=== PATIENT | male | born 1950 | race Caucasian/White ===

== ENCOUNTER → 2017-06-20 | Outpatient (CLI) | payer OTHER ==
[~2017-06-20] MED LIST: ASPI-319 PO; ATOR-24 PO; DOXY50CA26 PO; FNCG50 TOP; LVMIPUC SQ; METO100T14 PO; NVLRPUC SQ
[2017-06-20 12:29] LABS: HEMOGLOBIN A1C 8.4 % (4.5-5.6)
[2017-06-20 12:31] LABS: BASO % 0.6 %; BASO ABS # 0.03 K/uL (0-0.2); EOS % 3.2 %; EOS ABS # 0.17 K/uL (0-0.5); HEMATOCRIT 40.6 % (42-52); HEMOGLOBIN 13.9 g/dL (14.0-18.0); IG# 0.01 K/uL (0.00-0.02); LYMPH % 32.3 %; MEAN CELL VOLUME 92.7 fL (80-100); MEAN CORPUSCULAR HEMOGLOBIN 31.7 pg (25-34); MEAN CORPUSCULAR HGB CONC 34.2 g/dl (32-36); MEAN PLATELET VOLUME 10.3 fL (7.4-10.4); MONO % 10.6 %; MONO ABS # 0.56 K/uL (0.11-0.59); NEUT % 53.1 %; NEUT ABS # 2.79 K/uL (1.4-6.5); PLATELET COUNT 205 K/uL (130-400); RED CELL DISTRIBUTION WIDTH CV 13.1 % (11.5-14.5); RED CELL DISTRIBUTION WIDTH SD 44.9 fL (36.4-46.3); WHITE BLOOD COUNT 5.26 K/uL (4.8-10.8)
[2017-06-20 13:07] LABS: ALT/SGPT 49 U/L (12-78); AST/SGOT 28 U/L (15-37); BLOOD UREA NITROGEN 28 mg/dl (7-18); CALCIUM 8.6 mg/dl (8.5-10.1); CARBON DIOXIDE 29 mmol/L (21-32); CHOLESTEROL 162 mg/dl (0-200); CREATININE 1.43 mg/dl (0.60-1.40); GLUCOSE 238 mg/dl (70-99); SODIUM 140 mmol/L (136-145)
[2017-06-20 13:12] LABS: ALKALINE PHOSPHATASE 90 U/L (45-117); LDL CHOLESTEROL CALCULATED 63 mg/dl; TOTAL PROTEIN 7.3 gm/dl (6.4-8.2)
== END | disposition home or self-care (01) ==
LOC: C.LABBFT 08:56
PROVIDERS: ATTEND Physician Assistant Medical
DX: Z12.5 Encounter for screening for malignant neoplasm of prostate (principal); I10 Essential (primary) hypertension

== ENCOUNTER 2024-07-26 08:56 | Observation (INO) ==
--- NOTE | 2024-07-26 09:26 | History & Physical Bridge Note ---
Date of Service July 26, 2024 History & Physical Bridge Note I have examined the patient, reviewed the History & Physical and in the interval since the performance of the History & Physical I have noted the following changes of clinical significance: no changes noted
--- NOTE | 2024-07-26 09:27 | Pre Anesthesia Assessment ---
Date of Service July 26, 2024 Pre Sedation Assessment Cardiovascular + regular rate and + regular rhythm Respiratory + respiratory effort normal Pre-Sedation Airway Assessment Smoking Status: Never smoker Hx Sleep Apnea: No Hx Difficult Intubation: No Short, Thick Neck: No Thyromental Distance: > or= 3.5 Finger Breadths Oral Cavity: + WNL Mallampati Class: III ASA: ASA3 Procedure Planning Contraindications for Sedation: none Current Medications Reviewed: Yes Notes The planned sedation has been discussed with the patient. Informed Consent was o btained. I have identified the patient, determined the appropriateness of sedation and have assessed the patient immediately prior to the procedure. All medicine(s) and interventions are by my order.
[2024-07-26] MEDS: LIDOCAINE 1% LOCAL 20 ML VIAL ONE (11:08)
[2024-07-26] MEDS: VANCOMYCIN HCL 1000MG/20ML VIAL ONE (11:08)
[2024-07-26] MEDS: BUPIVACAINE 0.25% PF 30 ML VIAL ONE (11:08)
[2024-07-26] MEDS: ceFAZolin 330 MG/ML 1 GM VIAL ONE (11:09)
[2024-07-26] MEDS: WATER, STERILE FOR INJ 10 ML VIAL ONE (11:09)
[2024-07-26] MEDS: fentaNYL citrate PF 100 MCG/2 ML VIAL ONE (11:09)
[2024-07-26] MEDS: MIDAZOLAM HCL 5 MG/ML 1 ML VIAL ONE (11:10)
--- NOTE | 2024-07-26 11:20 | Post Anesthesia Assessment ---
Date of Service July 26, 2024 Post Sedation Assessment Vital Signs Pulse Resp BP Pulse Ox O2 Del Method 07/26/24 09:15 62 14 145/72 H 94 Room Air Recovery Score Activity: Moves 4 extremities Respiration: Deep Breath/Cough Circulation: +/-20% PreAnes Value Consciousness: Fully Awake Oxygen Saturation: O2 needed for >90% Discharge Sedation Level of Care: Fast Track Phase II Post Sedation Plan On clinical assessment, the patient appears to have tolerated the sedation without complications. Patient is recovering as anticipated. Patient will continue to be monitored by nursing and may be discharged when sedation discharge criteria are met per below protocol. Upon Completions of procedure up to 15 minutes continue every 5 minute vital signs and the P.A.R. score; then discharge to a Phase I or Fast Track to Phase II per the following guidelines: * Discharge Patient to appropriate Phase II area if PAR is 8 or greater or return to pre- procedure baseline. The post - procedure orders will be as directed. * If PAR score is less than 8 or not return to pre-procedure baseline then patient will follow Phase I monitoring till PAR is reached for Phase II. The Phase I may be done in procedure room or may call to secure a Phase I area. * If naloxone or flumazenil are used for reversal, hold in Phase I for continued monitoring from when last reversal dose was given for a minimum of 60 minutes or longer pending the nurse and/or physician discretion of patient condition before discharge to Phase II. Please call the Sedation Physician to re-evaluate and complete post-note for discharge to Phase II area. Do NOT discharge from procedure sedation or Phase 1 until post- sedation evaluation note is complete by procedure /sedation MD Sedation Discharge Instructions to be given to the patient at discharge to home.
--- NOTE | 2024-07-26 11:20 | Electrophysiology Report ---
Date of Service July 26, 2024 Electrophysiology Procedure Electrophysiology Procedure Report Procedure performed: Implantation of a biventricular ICD Staff associate media planner: Austyn Tovar MD Indication: The patient is a 73-year-old gentleman with a history of an ischemic cardiomyopathy. He has an ejection fraction less than 30%. He is on guideline directed medical therapy. He has not had a myocardial infarction in the past 40 days nor revascularization in the past 90 days. He has [place] Heart Association class II symptoms. He has an anticipated longevity greater than 1 year. He is also known to have left bundle branch block on his EKG with a QRS of 150 ms. Shared decision-making was employed prior to scheduling the implant. Based on this information is felt to be a good candidate for a biventricular ICD as primary prevention and sudden cardiac . Procedure in detail The patient was informed the risk benefits and alternatives to the intended procedure. He understood and wished to proceed. He was taken to the electrophysiology suite in a fasting state. Conscious sedation was administered per protocol the patient was monitored electrocardiography throughout today's procedure. A preoperative antibiotic was administered. The left upper pectoral area was prepped and draped in usual sterile fashion. This area was anesthetized using subcutaneous ministration of lidocaine and Marcaine solution. Incision was made at the site and carried down to the prepectoralis fascia using sharp dissection. Dissection and hemostasis was also achieved using electrocautery. A device pocket was fashioned and the tissues above the pectoralis muscle. The left axillary vein was then accessed 3 times under modified Seldinger technique. Sheath placed over guidewires at this site initially used to facilitate passage of the right ventricular and right atrial leads under fluoroscopic guidance. Adequate sensing and threshold parameters were obtained prior to active-fixation of the leads and the endocardial surface. The remaining sheath was used to facilitate passage of a guiding catheter for engagement of the coronary sinus. Coronary sinus venography was then performed in order to identify a suitable target vessel for the lead. Once identified standard guidewire and sheath techniques were employed in order to deliver the lead to the target vessel. Adequate pacing thresholds in the absence of diaphragmatic stimulation were confirmed prior to removal of the guiding catheters and sheaths. The proximal portion of the leads were then sutured prepectoralis fascia was nonabsorbable suture. The device pocket was then irrigated with an antibiotic solution. The device was then placed inside an antibiotic impregnated envelope. The leads were attached to the device and device was then placed in the pocket. The pocket was subsequently closed with 3 layers of absorbable suture. Steri-Strips and sterile dressing were then applied. The device was tested noninvasively prior to inclusion the procedure. The patient tolerated the procedure well. There were no immediate complications. Equipment used: Pulse generator. Plaster Machine Operator [employer]. Model number DTPA 2QQ serial number [id number] Right atrial lead. Plaster Machine Operator Medtronic. Model #5076 serial number [id number] Right ventricular lead. Plaster Machine Operator Med[employer]onic. Model number 6935M serial number [id number] Coronary sinus lead. Plaster Machine Operator Med[employer]onic. Model number of 4298 serial number [id number] Measured data: Right atrial lead. P waves measure 1 mV. Pacing threshold was 0.75 V at 0.4 ms with a pacing PINS of 475 ohms Right ventricular lead. R waves measure greater than 20 mV. Pacing threshold is 0.75 V at 0.4 ms at base impedance of 798 ohms Coronary sinus lead. Pacing threshold was 1.75 V at 0.4 ms with a pacing PINS of 399 ohms (LV 4 to coil) Impression: Successful implantation of biventricular ICD MN[facility] Electrophysiology codes Pacing Procedure 1: Pacin BiV electrode w/Pacer / ICD implant, add on code ICD Procedure 1: ICD: 18902 Insert single or dual ICD system PG Moderate Sedation Codes Moderate Sedation Codes Procedure 1: Sedation/Anesthesia: 97385 Mod Sedation by the same physician;Init15 Min Child Age 5 & Up Procedure 2: Sedation/Anesthesia: 84675 Mod Sedation by the same physician; Ea [id number] Minutes
[2024-07-26] MEDS ORDERED: ACETAMINOPHEN 325 MG TAB PO PRN (11:21)
[2024-07-26] MEDS ORDERED: oxyCODONE HCL IR 5 MG TAB (IMMEDIATE RELEASE) PO PRN (11:21)
--- NOTE | 2024-07-26 15:45 | Electrocardiogram Report ---
Test Reason : Blood Pressure : */* mmHG Vent. Rate : 61 BPM Atrial Rate : 61 BPM P-R Int : 148 ms QRS Dur : 162 ms QT Int : 526 ms P-R-T Axes : -18 -71 119 degrees QTcB Int : 529 ms AV dual-paced rhythm Biventricular pacemaker detected Abnormal ECG When compared with ECG of 01-Jun-2024 08:54, Electronic ventricular pacemaker has replaced Sinus rhythm Confirmed by Yan Gan ([id number]) on 07/26/2024 3:45:36 PM Referred By: Austyn Tovar Confirmed By: Yan Gan
[2024-07-26] MEDS ORDERED: DEXTROSE 50% 50 ML SYRINGE IV PRN (16:19)
[2024-07-26] MEDS ORDERED: CARBOHYDRATES FOR HYPOGLYCEMIA PO PRN (16:19)
[2024-07-26] MEDS ORDERED: GLUCOSE 10 TAB/TUBE PO PRN (16:19)
[2024-07-26] MEDS ORDERED: GLUCOSE 40% GEL 15 GM TUBE PO PRN (16:19)
[2024-07-26] MEDS ORDERED: GLUCAGON FOR INJ 1 MG VIAL SQ PRN (16:19)
[2024-07-26] MEDS ORDERED: LORazepam 1 MG TAB PO PRN (17:00)
[2024-07-26] MEDS: INSULIN ASPART PER UNIT CHARGE SC SCH (17:05)
[2024-07-26] MEDS: ceFAZolin 1000MG 1,000 MG/7.5 ML SYR IV ONE (17:58)
[2024-07-26] MEDS: ASPIRIN 81 MG ECTAB PO SCH (20:38)
[2024-07-26] MEDS: VALSARTAN/SACUBITRIL 26/24MG TAB PO SCH (20:39)
[2024-07-26] MEDS: ATORVASTATIN 40 MG TAB PO SCH (20:39)
[2024-07-26] MEDS: LANTUS PER UNIT CHARGE SC SCH (20:42)
[2024-07-26] MEDS ORDERED: NON-FORMULARY MEDICATION (Insulin Glargine [Lantus Solostar U-100 Insulin] 100 unit/mL (3 SQ SCH (21:00)
--- NOTE | 2024-07-27 07:18 | XRay Report ---
EXAM: XR chest 2V PA/lateral CLINICAL HISTORY: /P PACEMAKER PLACEMENT EVAL LEAD PLACEMENT EVAL FOR PNEUMO JMF/HLS TECHNIQUE: Radiograph of chest was acquired. COMPARISON: 02/17/2024 16:15:00 FOLEY ARTIST FINDINGS: Sternotomy sutures in situ Cardiac pacemaker in situ with lens in situ in right atrium, bilateral ventricles Mild cardiomegaly The lungs are clear and well-expanded with no pulmonary infiltrate or pleural effusion. Rest of the cardiomediastinal silhouette is within normal limits. No acute osseous abnormality. IMPRESSION: 1. No evidence of pneumothorax 2. Mild cardiomegaly 3. Sternotomy sutures in situ -new finding 4. Cardiac pacemaker in situ with lens in situ in right atrium and bilateral ventricles- new finding Electronically signed by Juan Manuel Jesus 07-27-2024 07:18 AM
[2024-07-27 08:12] VITALS: BP 109/65; PULSE 62; RESP 18; TEMP 98.2; O2SAT 100
[2024-07-27] MEDS: METOPROLOL SUCC 50MG EXT REL TAB PO SCH (08:46)
[2024-07-27] MEDS: SPIRONOLACTONE 12.5 MG TAB PO SCH (08:46)
[2024-07-27] MEDS: PANTOprazole 40 MG TAB PO SCH (08:47)
[2024-07-27] MEDS: FUROSEMIDE 40 MG TAB PO SCH (08:47)
--- NOTE | 2024-07-27 08:51 | Discharge Summary ---
Date of Service July 27, 2024 Principal Diagnosis Ischemic cardiomyopathy Discharge Exam On the day of discharge the patient was ambulatory. Normal respiratory effort Evaluation the device implant site did not reveal any evidence of hematoma, drainage or significant erythema. Mild ecchymosis. Discharge Data Allergies Allergy/AdvReac Type Severity Reaction Status Date / Time lisinopril AdvReac Intermediate Cough Verified 07/29/24 16:37 metformin AdvReac Intermediate Diarrhea Verified 07/29/24 16:37 Procedures Performed Operation Date: 07/26/24 10:00 Actual Procedures p ICD Insertion Single or Dual - Austyn Tovar MD s Venogram Extremity Unilateral - Austyn Tovar MD Ordered Studies 07/26/24 06:45 EP Lab Images for PACS ONCE Hospital Course (1) Ischemic cardiomyopathy: On the day of admission the patient underwent implantation of a biventricular Medtronic ICD. No evident complication. The following morning chest x-ray demonstrated stable lead position without complication. Device interrogation revealed normal function of all leads. Total Time Total Time Spent Total Time Spent (In Minutes): 20 Discharge Plan Discharge Items Patient Disposition: Home - Self-Care Reason For Visit: Ischemic Cardiomyopathy Discharge Diagnosis: Ischemic cardiomyopathy Activity: Per Instructions section Lifting: No more than 10 pounds Lifting Comment: No lifting left arm above shoulder behind neck for 6 weeks Bathing: Keep incision dry Bathing Comment: Keep wound dry and Steri-Strips intact until follow-up in our clinic Exercise/Sports: Gradually increase as tolerated Driving/Machine Use: Resume 1 day after discharge Non-emergency contact: [facility] Call non-emergency contact if: your pain is not controlled, your pain is wo rsening, you have a fever, your wound has increased redness, your wound has increased drainage and your wound pain has increased Follow-up/Referrals: Austyn Rolle MD [Primary Care Provider] - 08/03/24 11:00 am (Hospital follow up scheduled August 03 at 11:00) Diet: Carb Consistent or DM2 and Heart Healthy Addtl Attending Provider Instructions: None Pending Studies at Discharge: No Stand-Alone Forms: My [employer], Smoking Cessation Medications and DC Order Prescriptions: Continued (DME) pen needle, diabetic [BD Ultra-Fine Short Pen Needle] 31 gauge x 5/16" needle See Rx Instructions .ROUTE .MEDSUPPLY Qty: 200 5RF Rx Instructions: injects 6 times daily pantoprazole 40 mg tablet,delayed release (DR/EC) 40 mg PO QAM Qty: 100 3RF metoprolol succinate 200 mg tablet extended release 24 hr 200 mg PO QAM Qty: 100 3RF doxycycline hyclate 50 mg capsule 50 mg PO QAM Qty: 100 3RF Farxiga 10 mg tablet 10 mg PO QAM Qty: 100 3RF atorvastatin 80 mg tablet 80 mg PO QPM Qty: 100 3RF (DME) blood sugar diagnostic Strip See Dose Instructions .ROUTE .MEDSUPPLY Qty: 125 5RF Dose Instruction: As directed Rx Instructions: Test 4 times a day as directed furosemide 40 mg tablet 40 mg PO DAILY Qty: 90 3RF Entresto 24-26 mg tablet 1 tab PO BID Qty: 180 3RF azelaic acid [Finacea] 15 % gel 1 applic TOP BID Qty: 50 1RF insulin glargine [Lantus Solostar U-100 Insulin] 100 unit/mL (3 mL) insulin pen 60 unit subcut BID Qty: 45 5RF aspirin 81 mg tablet 81 mg PO QPM spironolactone 25 mg tablet 12.5 mg PO DAILY Qty: 30 6RF No Action insulin aspart U-100 [Novolog FlexPen U-100 Insulin] 100 unit/mL (3 mL) insulin pen 6 unit subcut AC Rx Instructions: sliding scale subcut INJECT BEFORE EACH M; dulaglutide 3 mg/0.5 mL pen injector 3 mg subcut WK Rx Instructions: 3 mg subcutaneously Once weekly; Discharge Orders: Discharge Order (Routine); Ordered 07/27/24 Ordered By: Austyn Avalos/Other Patient Handouts: High Blood Sugar (Hyperglycemia), Managing Type 2 Diabetes Admission Data Admit Date/Time: 07/26/24 09:34 Attending Provider: Austyn Tovar Admit Provider: Austyn Tovar Primary Care Provider: Austyn Rolle Other Interventions: Discharge Summary Assessment (RN) Last Done: 07/27/24 09:28 Coding Level of Care Code 23785 IN/OBS DISCH 30 MIN/LESS Diagnoses Ischemic cardiomyopathy I25.5
--- NOTE | 2024-08-23 13:54 | Coding Query ---
A supporting diagnosis is required for the test/procedure performed on this patient in order for us to be reimbursed by the patient's insurance. Please provide a supporting diagnosis for the following test/procedure listed below next to the test name. *If there is no additional diagnosis for this patient that would support the following test/procedure please document that below next to the test/procedure. Test(s)/Procedure(s) that require a supporting diagnosis: Insertion of Implantable Automatic Defibrillator > Congestive heart failure Thank you Ophelia Gamble PagerDuty Information Management Once completed, please kindly fax back to [phone] For questions please call [phone] [facility]
== END 2024-07-27 10:07 | disposition home or self-care (01) | DRG 277 ==
LOC: EP 08:56 → INTOOBSV 09:34 → 2S 09:34
PROC: EPB.ICD (2024-07-26 10:00)